=== PATIENT | male | born 1955 | race Caucasian/White ===

== ENCOUNTER → 2017-01-13 | Outpatient (CLI) | payer OTHER ==
[~2017-01-13] MED LIST: 1-ME1LIQ PO; ADVA250A INH; ALBUAER3 INH; AMLO10TA2 PO; LOSA50TA PO; OMEP40CA2 PO
[2017-01-13 08:54] LABS: AUTOMATED NEUTROPHIL # 3.6 TH/MM3 (1.8-7.7); BASOPHIL % 0.7 % (0.0-2.0); EOSINOPHIL # 0.2 TH/MM3 (0-0.4); EOSINOPHIL % 3.6 % (0.0-4.0); HEMATOCRIT 39.4 % (39.0-51.0); HEMO FLAGS DIFF FINAL; LYMPH % 25.6 % (9.0-44.0); LYMPHOCYTE # 1.5 TH/MM3 (1.0-4.8); MEAN CORPUSCULAR HEMOGLOBIN 31.2 PG (27.0-34.0); MEAN CORPUSCULAR HGB CONC 34.3 % (32.0-36.0); MONO % 8.4 % (0.0-8.0); NEUT % 61.7 % (16.0-70.0); PLATELET COUNT 397 TH/MM3 (150-450); RED BLOOD COUNT 4.33 MIL/MM3 (4.50-5.90); RED CELL DISTRIBUTION WIDTH 14.6 % (11.6-17.2); WHITE BLOOD COUNT 5.8 TH/MM3 (4.0-11.0)
[2017-01-13 09:35] LABS: ALKALINE PHOSPHATASE 67 U/L (45-117); ALT (GPT) 24 U/L (12-78); ANION GAP 5 MEQ/L (5-15); AST (GOT) 18 U/L (15-37); BICARBONATE 26.6 MEQ/L (21.0-32.0); BLOOD UREA NITROGEN 17 MG/DL (7-18); CHLORIDE 107 MEQ/L (98-107); GLOMERULAR FILTRATION RATE 68 ML/MIN (>89); GLUCOSE,FASTING 93 MG/DL (74-99); HDL CHOLESTEROL 52.6 MG/DL (40.0-60.0); LDL CHOLESTEROL 63 MG/DL (0-99); POTASSIUM 4.4 MEQ/L (3.5-5.1); SODIUM (NA) 139 MEQ/L (136-145); TOTAL BILIRUBIN ADULT 0.5 MG/DL (0.2-1.0)
== END ==
LOC: CLAB 08:35
PROVIDERS: ATTEND Family Medicine
DX: I10 Essential (primary) hypertension (principal); F10.10 Alcohol abuse, uncomplicated
CPT/HCPCS: 36415; 80053; 80061; 84443; 85025

== ENCOUNTER → 2017-02-09 | Outpatient (CLI) | payer OTHER | LOC: CLAB 09:14 | PROVIDERS: ATTEND Family Medicine | DX: R39.11 Hesitancy of micturition (principal) | CPT/HCPCS: 36415; 84153 ==

== ENCOUNTER 2017-10-04 20:00 | Emergency (ER) | payer SELFPAY ==
[~2017-10-04] VITALS: Ht 180.3 cm; Wt 81.8 kg
[~2017-10-04 20:00] MED LIST changes: -1-ME1LIQ PO; +FLUT50SP EACH NARE; +PRED50 PO; +TRIAM.1%T TOPICAL
[2017-10-04 20:03] VITALS: BP 162/87; PULSE 95; RESP 16; TEMP 98.3; O2SAT 98
[2017-10-04 20:23] VITALS: BP 155/75; PULSE 88; RESP 20; O2SAT 99
--- NOTE | 2017-10-04 20:38 | PD ---
HPI Chief Complaint: Skin Problem Time Seen by Provider: 20:13 Travel History International Travel<30 days: No Contact w/Intl Traveler<30days: No Traveled to known affect area: No History of Present Illness HPI 62-year-old male with history of CAD, hypertension, alcohol use, presents to emergency department for evaluation of an abscess on the anterior aspect of the left distal forearm. Patient states that he injected IV drug 3 days ago but has developed a raised painful lesion where he did so on his left anterior forearm. He denies other illnesses, fever, or chills. Reports moderate constant pain at the site. Came in because he noticed red streaking up to his bicep. He has no other symptoms to report. PFSH Past Medical History Asthma: Yes Cardiac Catheterization: Yes Cardiovascular Problems: Yes (HTN) COPD: Yes Cerebrovascular Accident: No Diabetes: No Diminished Hearing: No Hypertension: Yes Respiratory: Yes (asthma, COPD) Myocardial Infarction: No Influenza Vaccination: No Social History Alcohol Use: Yes (2-3 times a week) Tobacco Use: Yes (1-2 cigs/day) Substance Use: Yes (Occasionally) Allergies-Medications (Allergen,Severity, Reaction): Coded Allergies: banana (Unverified Allergy, Severe, 10/04/17) peanut (Unverified Allergy, Severe, 10/04/17) Reported Meds & Prescriptions Reported Meds & Active Scripts Active Ibuprofen 600 Mg Tab 600 Mg PO Q8HR PRN Keflex (Cephalexin) 500 Mg Cap 500 Mg PO Q6H 5 Days Bactrim DS (Sulfamethoxazole-Trimethoprim) 800-160 Mg Tab 1 Tab PO BID Triamcinolone Topical (Triamcinolone Acetonide) 0.1 % Oint 1 Applic TOPICAL BID Proair Hfa 8.5 GM Inh (Albuterol Sulfate) 90 Mcg/Act Aer 2 Puff INH Q6H PRN 108 mcg/actuation Fluticasone Nasal Agency 50 Mcg/Act Naspr 50 Mcg EACH NARE DAILY 50 mcg/spray Advair Diskus Inh (Fluticasone-Salmeterol Inh) 250-50 Mcg/Blist Aer 1 Puff INH BID Rinse mouth after use. Losartan (Losartan Potassium) 50 Mg Tab 50 Mg PO DAILY Omeprazole 40 Mg Cap 40 Mg PO DAILY Amlodipine (Amlodipine Besylate) 10 Mg Tab 10 Mg PO DAILY Review of Systems Except as stated in HPI: all other systems reviewed are Neg Physical Exam Narrative GENERAL: Well-nourished, well-developed male patient no acute distress. SKIN: Focused skin assessment warm/dry. 2 cm in diameter area of induration and raised lesion on the chest aspect of the anterior right wrist. There is streaking from the site up to the bicep. HEAD: Normocephalic. EYES: No scleral icterus. No injection or drainage. NECK: Supple, trachea midline. No JVD or lymphadenopathy. CARDIOVASCULAR: Regular rate and rhythm without murmurs, gallops, or rubs. RESPIRATORY: Breath sounds equal bilaterally. No accessory muscle use. GASTROINTESTINAL: Abdomen soft, non-tender, nondistended. MUSCULOSKELETAL: No cyanosis, or edema. BACK: Nontender without obvious deformity. No CVA tenderness. Data Data Last Documented VS Vital Signs Date Time Temp Pulse Resp B/P (MAP) Pulse Ox O2 Delivery O2 Flow Rate FiO2 10/04/17 22:09 84 18 141/65 (90) 96 10/04/17 20:23 Room Air 10/04/17 20:03 98.3 Orders Orders Iv Access Insert/Monitor (10/04/17 20:36) Complete Blood Count With Diff (10/04/17 20:36) Basic Metabolic Panel (Bmp) (10/04/17 20:36) Wound Culture And Gram Stain (10/04/17 20:36) Vancomycin Inj (Vancomycin Inj) (10/04/17 20:45) Ed Discharge Order (10/04/17 21:36) Labs Laboratory Tests Test 10/04/17 20:40 White Blood Count 10.1 TH/MM3 Red Blood Count 4.41 MIL/MM3 Hemoglobin 12.6 GM/DL Hematocrit 38.0 % Mean Corpuscular Volume 86.1 FL Mean Corpuscular Hemoglobin 28.5 PG Mean Corpuscular Hemoglobin Concent 33.1 % Red Cell Distribution Width 14.9 % Platelet Count 429 TH/MM3 Mean Platelet Volume 7.6 FL Neutrophils (%) (Auto) 66.5 % Lymphocytes (%) (Auto) 22.0 % Monocytes (%) (Auto) 6.9 % Eosinophils (%) (Auto) 2.5 % Basophils (%) (Auto) 2.1 % Neutrophils # (Auto) 6.7 TH/MM3 Lymphocytes # (Auto) 2.2 TH/MM3 Monocytes # (Auto) 0.7 TH/MM3 Eosinophils # (Auto) 0.3 TH/MM3 Basophils # (Auto) 0.2 TH/MM3 CBC Comment DIFF FINAL Differential Comment Blood Urea Nitrogen 14 MG/DL Creatinine 1.20 MG/DL Random Glucose 128 MG/DL Calcium Level 8.7 MG/DL Sodium Level 137 MEQ/L Potassium Level 3.7 MEQ/L Chloride Level 101 MEQ/L Carbon Dioxide Level 27.5 MEQ/L Anion Gap 9 MEQ/L Estimat Glomerular Filtration Rate 61 ML/MIN MDM Medical Decision Making Medical Screen Exam Complete: Yes Emergency Medical Condition: Yes Medical Record Reviewed: Yes Differential Diagnosis Abscess versus cellulitis versus foreign body versus lymphangitis versus sepsis Narrative Course 62-year-old male presents to emergency department for evaluation of painful raised lesion on the distal aspect of the left forearm. He does admit to using IV drugs.. Abscess is incised. There is very little purulent drainage however culture sent. She is counseled on care. He is encouraged to stop using IV drugs and alcohol. She verbalizes understanding. He agrees to return immediately with any acute worsening of symptoms. Diagnosis Primary Impression: Abscess of forearm, left Additional Impressions: Lymphangitis IVDU (intravenous drug user) Referrals: Primary Care Physician Patient Instructions: Abscess Incision and Drainage (DC), General Instructions Additional Instructions: Stop using IV drugs Start antibiotic tomorrow and take it until it is all gone Return immediately to the emergency department with any acute worsening of symptoms Med/Other Pt SpecificInfo: Prescription(s) given Scripts Ibuprofen (Ibuprofen) 600 Mg Tab 600 MG PO Q8HR Y for PAIN, #30 TAB 0 Refills Prov: Bernadette Sinha 10/04/17 Cephalexin (Keflex) 500 Mg Cap 500 MG PO Q6H for Infection for 5 Days, #20 CAP 0 Refills Prov: Bernadette Sinha 10/04/17 Sulfamethoxazole-Trimethoprim (Bactrim DS) 800-160 Mg Tab 1 TAB PO BID for Infection, #20 TAB 0 Refills Prov: Bernadette Sinha 10/04/17 Disposition: 01 DISCHARGE HOME Condition: Stable Bernadette Sinha Oct 04, 2017 20:37
[2017-10-04] MEDS ORDERED: VANCOMYCIN 1,000 MG/NS 250 ML IV ONE ×2 (20:45)
[2017-10-04] MEDS ORDERED: VANCOMYCIN INJ 200 ML IV ONE (20:45)
[2017-10-04 21:14] LABS: AUTOMATED NEUTROPHIL # 6.7 TH/MM3 (1.8-7.7); BASOPHIL # 0.2 TH/MM3 (0-0.2); BASOPHIL % 2.1 % (0.0-2.0); EOSINOPHIL # 0.3 TH/MM3 (0-0.4); EOSINOPHIL % 2.5 % (0.0-4.0); HEMOGLOBIN 12.6 GM/DL (13.0-17.0); LYMPHOCYTE # 2.2 TH/MM3 (1.0-4.8); MEAN CELL VOLUME 86.1 FL (80.0-100.0); MEAN CORPUSCULAR HEMOGLOBIN 28.5 PG (27.0-34.0); MEAN CORPUSCULAR HGB CONC 33.1 % (32.0-36.0); MEAN PLATELET VOLUME 7.6 FL (7.0-11.0); MONO % 6.9 % (0.0-8.0); MONOCYTE # 0.7 TH/MM3 (0-0.9); NEUT % 66.5 % (16.0-70.0); PLATELET COUNT 429 TH/MM3 (150-450); RED BLOOD COUNT 4.41 MIL/MM3 (4.50-5.90); RED CELL DISTRIBUTION WIDTH 14.9 % (11.6-17.2); WHITE BLOOD COUNT 10.1 TH/MM3 (4.0-11.0)
[2017-10-04] MEDS ORDERED: BACT800T5 PO (21:27)
[2017-10-04] MEDS ORDERED: IBUP-232 PO (21:27)
[2017-10-04] MEDS ORDERED: CEPH-460 PO (21:27)
[2017-10-04 21:36] LABS: BICARBONATE 27.5 MEQ/L (21.0-32.0); CALCIUM 8.7 MG/DL (8.5-10.1); CREATININE 1.2 MG/DL (0.60-1.30)
[2017-10-04 22:09] VITALS: BP 141/65
== END 2017-10-04 22:23 | disposition home or self-care (01) ==
LOC: NEPD 20:00
DX: L02.414 Cutaneous abscess of left upper limb (principal); I89.1 Lymphangitis; F19.90 Other psychoactive substance use, unspecified, uncomplicated; B95.61 Methicillin susceptible Staphylococcus aureus infection as the cause of diseases classified elsewhere; I10 Essential (primary) hypertension; J44.9 Chronic obstructive pulmonary disease, unspecified; Z72.0 Tobacco use
CPT/HCPCS: 10060; 80048; 85025; 87070; 87077; 87186; 96365; 99284; J3370; J7050; 87205

== ENCOUNTER 2018-01-17 20:55 | Emergency (ER) | payer SELFPAY ==
[~2018-01-17] VITALS: Ht 180.3 cm; Wt 79.5 kg
[~2018-01-17 20:55] MED LIST changes: +BACT800T5 PO; +CEPH-460 PO; +IBUP-232 PO; -PRED50 PO
[2018-01-17 20:57] VITALS: BP 163/81; PULSE 83; RESP 18; TEMP 98.3; O2SAT 100
[2018-01-17] MEDS ORDERED: BACT800T5 PO (22:04)
[2018-01-17] MEDS ORDERED: SULFAMETHOXAZOLE-TRIMETHOPRIM DS 800-160 MG TAB PO ONE (22:15)
--- NOTE | 2018-01-17 22:16 | PD ---
HPI Chief Complaint: Skin Problem Time Seen by Provider: 21:21 Travel History International Travel<30 days: No Contact w/Intl Traveler<30days: No Traveled to known affect area: No History of Present Illness HPI 62-year-old white male presents emergency department for evaluation of a right wrist abscess from IV drug abuse. The patient states that he started IV drug abuse approximately 6 months ago. Patient denies any fever chills. No nausea vomiting. PFSH Past Medical History Asthma: Yes Cardiac Catheterization: Yes Cardiovascular Problems: Yes (HTN) COPD: Yes Cerebrovascular Accident: No Diabetes: No Patient Takes Glucophage: No Diminished Hearing: No Hypertension: Yes Respiratory: Yes (asthma, COPD) Immunizations Current: Yes Myocardial Infarction: No Tetanus Vaccination: < 5 Years Influenza Vaccination: No Social History Alcohol Use: Yes (2-3 times a week) Tobacco Use: Yes (1-2 cigs/day) Substance Use: Yes (IV HEROIN) Allergies-Medications (Allergen,Severity, Reaction): Coded Allergies: banana (Verified Allergy, Severe, 01/17/18) peanut (Verified Allergy, Severe, 01/17/18) Reported Meds & Prescriptions Reported Meds & Active Scripts Active Bactrim DS (Sulfamethoxazole-Trimethoprim) 800-160 Mg Tab 1 Tab PO BID Amlodipine (Amlodipine Besylate) 10 Mg Tab 10 Mg PO DAILY Review of Systems General / Constitutional: No: Fever Eyes: No: Visual changes HENT: No: Headaches Cardiovascular: No: Chest Pain or Discomfort Respiratory: No: Shortness of Breath Gastrointestinal: No: Abdominal Pain Genitourinary: No: Dysuria Musculoskeletal: No: Pain Skin: Positive Rash, Positive Lumps, Positive Lesions Neurologic: No: Weakness Psychiatric: No: Depression Endocrine: No: Polydipsia Hematologic/Lymphatic: No: Easy Bruising Physical Exam Narrative GENERAL: This is a well-nourished, well-developed patient, in no apparent distress. SKIN: Patient has a 1.5 cm superficial abscess to the right volar wrist. It is fluctuant. No pointing. Patient has multiple superficial injection misses. These are nodular areas along the veins. Patient has multiple track harris. HEAD: Atraumatic. Normocephalic. EYES: PERRL, EOMI, no discharge or injection. No scleral icterus. EARS: Clear NOSE: Nasal turbinates appear normal. THROAT: Mucosa pink and moist. Airway patent. NECK: Trachea midline. supple, moves head freely. LUNGS: Clear to auscultation. CV: Regular in rhythm. ABDOMEN: Soft nontender. EXT: No clubbing cyanosis or edema. Data Data Last Documented VS Vital Signs Date Time Temp Pulse Resp B/P (MAP) Pulse Ox O2 Delivery O2 Flow Rate FiO2 01/17/18 20:57 98.3 83 18 163/81 (108) 100 Orders Orders Sulfamet-Trimeth Ds 800-160 Mg (Bactrim (01/17/18 22:15) Ed Discharge Order (01/17/18 22:01) MDM Medical Decision Making Medical Screen Exam Complete: Yes Emergency Medical Condition: Yes Medical Record Reviewed: Yes Differential Diagnosis MDM: High Differential diagnoses: Abscess, folliculitis, cellulitis, lymphangitis, abrasion, contact dermatitis Narrative Course Patient's right wrist abscess has been incised and drained. Bactrim DS p.o. Procedures Procedure Narrative I&D abscess: After the risks and benefits were discussed the following procedure was performed. The skin is prepped and draped in the usual sterile fashion using Betadine. After adequate anesthesia, an 11 blade scalpel is used to make a 1 centimeter central incision. Perulant material is expressed . A clean dressing is applied. The patient tolerated the procedure well. There was no complications. Follow-up instructions were given to the patient. Diagnosis Primary Impression: Right wrist abscess Patient Instructions: General Instructions Additional Instructions: Rest. Elevation. keep clean and dry. Warm compresses. Daily wound care with soap, water and Neosporin. Three Advil every 6 hours. Bactrim DS. Follow-up with a primary care doctor in one week. Return to the ER for any problems. Med/Other Pt SpecificInfo: Prescription(s) given, Wound Care Scripts Sulfamethoxazole-Trimethoprim (Bactrim DS) 800-160 Mg Tab 1 TAB PO BID for Infection, #20 TAB 0 Refills Prov: Tim Sánchez MD 01/17/18 Disposition: 01 DISCHARGE HOME Condition: Stable Edward Messina Jan 17, 2018 22:15
== END 2018-01-17 22:23 | disposition home or self-care (01) ==
LOC: NEPD 20:55
DX: L02.413 Cutaneous abscess of right upper limb (principal); F11.10 Opioid abuse, uncomplicated; F17.210 Nicotine dependence, cigarettes, uncomplicated
CPT/HCPCS: 10060